=== PATIENT | female | born 1995 | race African-American/Black ===

== ENCOUNTER 2017-10-25 21:27 | Emergency (ER) | payer MEDICAID ==
[2017-10-25 21:48] VITALS: BP 121/79; BMI 47.9
--- NOTE | 2017-10-25 23:34 | DR.GENAD ---
HPI - PCP Primary Care Physician: NLD - Complaint/Symptoms Chief Complaint Doctors Comments: Patient states she was in the emergency room at [facility] and they told her she had the flu and pneumonia and gave her a prescription for amoxicillin and she left the emergency and came to the emergency here. States she has been having right side and back pain with aching all over. states she smokes one pack cigarettes daily and drinks occasionally. She denies any recent trauma. States she has a non productive cough but denies SOB or wheezing. Chief Complaint:: Patient stated that she went to the ER in [place] earlier and was told that she had Flu and Pneumonia. Patient stated she needs a breathing tx. d/t her hx. of Asthma and she feels tight. Patient stated that she can't find her inhaler. Self Treatment fo Chief Complaint: Patient stated that she also has sore are her Clitoris that she would like to be looked at. - Nurses notes reviewed Nurses Notes Review: Yes - Source History Provided: Patient - Mode of Arrival Mode of Arrival: Ambulatory - Timing Onset of Chief Complaint: 10/21/17 Came on: Gradually - Duration Duration: Constant How lon Duration: Days - Location Location: right sided chest pain; aching all over - Severity Severity: Moderate - Modifying Factors Worsens:: nothing Improves:: nothing PMH - PMH Past Medical History: Yes Past Medical History: Asthma, Hypertension Past Medical History Comment: PCOS Past Surgical History: Yes Surgical History: Tonsillectomy Past Surgical History Comment: Dental Surgery - Family History History of Family Medical Conditions: Yes Family Medical History: Diabetes Mellitus, Hypertension Family Medical History Comment: Dementia - Social History Does patient currently use any type of tobacco product: Yes Have you used tobacco products in the last 12 months: Yes Type of Tobacco Use: Cigarettes Alcohol Use: Occasionally Do you use any recreational Drugs:: Yes ([facility]) Lives With: Alone Lives Where: Homeless - infectious screening In the last 2 months have you had wt loss of >10#?: NO Have you had fever, night sweats or hemotysis?: No Have you traveled outside the country in the last 6 months?: No Isolation: Standard ROS - Review of Systems Constitutional: No Symptoms Reported. negative: See HPI, Chills, Diaphoresis, Fever, Malaise, Weakness, Irritable, Fatigue, Loss of Appetite, Other Eyes: No Symptoms Reported ENTM: No Symptoms Reported, Nose Discharge, Nose Congestion, Throat Pain. negative: See HPI, Ear Pain, Ear Discharge, Pulling on Ears, Hearing Loss, Nose Pain, Epistaxis, Mouth Pain, Mouth Swelling, Loose Teeth, Drooling, Throat Swelling, Ear Foreign Body Respiratoy: No Symptoms Reported, Non-Productive Cough. negative: See HPI, Productive Cough, Moist Cough, Dry Cough, Hacking Cough, Barking Cough, Brassy Cough, Orthopnea, Short of Breath, Stridor, Wheezing, Hemoptysis, Other Cardiovascular: No Symptoms Reported. negative: See HPI, Chest Pain, Edema, Palpitations, Syncope, Cyanosis, Skin Mottling, Other Gastrointestinal/Abdominal: No Symptoms Reported. negative: See HPI, Abdominal Pain, Constipation, Diarrhea, Nausea, Vomiting, Food Intolerance, Other Genitourinary: No Symptoms Reported. negative: See HPI, Discharge, Dysuria, Frequency, Hematuria, Pain, Bleeding, Other Neurological: No Symptoms Reported Musculoskeletal: No Symptoms Reported. negative: See HPI, Back Pain, Gout, Joint Pain, Joint Swelling, Muscle Pain, Muscle Stiffness, Neck Pain, Right, Left, Neck, Chest wall, Rib(s), Back, Shoulder, Arm, Elbow, Forearm, Wrist, Hand , Pelvis, Hip, Leg, Knee, Ankle, Foot, Other Integumentary: No Symptoms Reported. negative: See HPI, Change in Color, Change in Hair/Nails, Dryness, Lesions, Lumps, Rash, Itching, Wound, Bruises, Juandice, Other Hematologic/Lymphatic: No Symptoms Reported Endocrine: No Symptoms Reported Psychiatric: No Symptoms Reported. negative: See HPI, Anxiety, Depression, Hallucinations, Excessive crying, Suicidal, Other PE - Vital Signs Vitals: Temperature 99.2 F Pulse Rate 95 Respiratory Rate 24 Blood Pressure 121/79 O2 Sat by Pulse Oximetry 98 - General Limitations: No Limitations, Language Barrier General Appearance: Alert, In Distress (mod), Obese - Head Head Exam: Normal Inspection, Atraumatic, Normocephalic - Eyes Eye exam: Normal Appearance, PERRL, EOMI. negative: Scleral Icterus, Conjunctival Injection, Nystagmus, Miosis, Mydrasis, Periorbital Swelling, Periorbital Tenderness, Other - ENT ENT Exam: Normal Exam, Normal Oropharynx, Normal External Ear Exam, Mucous Membranes Moist (nasal congestion; purulent discharge), TM's Normal Bilaterally External Ear Exam: Normal External Inspection TM/Canal Exam: Bilateral Normal Nose Exam: Normal Nose Exam Mouth Exam: Normal Inspection Throat Exam: Normal Inspection - Neck Neck Exam: Normal Inspection, Full ROM, Trachea Midline - Chest Chest Inspection: Normal Inspection, Symmetric Chest Wall Rise - Respiratory Respiratory Exam: Normal Lung Sounds Bilat Respiratory Exam: Bilateral Clear to Auscultation - Cardiovascular Cardiovascular Exam: Regular Rate, Normal Rhythm, Normal Heart Sounds - Abdominal Exam Abdominal Exam: Normal Inspection, Normal Bowel Sounds, Soft Abdominal Tenderness: negative: RUQ, RLQ, LUQ, LLQ, Epigastrium, Suprapubic, Diffuse, Mild, Moderate, Severe, Other - Extremities Extremities Exam: Normal Inspection, Full ROM, Normal Capillary Refill. negative: Tenderness, Edema, Joint Swelling, Calf Tenderness, Other - Back Back Exam: Normal Inspection, Full ROM. negative: Tenderness, (R) CVA Tenderness, (L) CVA Tenderness, Muscle Spasm, Paraspinal Tenderness, Vertebral Tenderness, Rashes, (R) Sciatic Notch Tenderness, (L) Sciatic Notch Tendern, (R ) Straight Leg Raise, (L) Straight Leg Raise, Other - Neurologic Neurological Exam: Alert, Oriented X3, CN II-XII Intact, Normal Gait, Reflexes Normal - Psychiatric Psychiatric Exam: Normal Affect, Normal Mood - Skin Skin Exam: Warm, Dry, Intact, Normal Color. negative: Rash, Cyanosis, Diaphoresis, Erythema, Pallor, Mottled, Other ROR - Labs Reviewed Laboratory Results Reviewed?: Yes (all labs and x-ray results reviewed and discussed with patient) Laboratory: Influenza Type A (PCR) Negative (NEGATIVE) 10/25/17 23:25 Influenza Type B (PCR) Negative (NEGATIVE) 10/25/17 23:25 S. pyogenes (TEM-PCR) Not detected (NOT DETECT) 10/25/17 23:25 - XRAY XRAY Interpreted by: Radiologist (CXR: No acute cardiopulmonary abnormality) - Diagnosis Discharge Problem: Bronchitis Sinusitis, acute maxillary Qualifiers: Recurrence: non-recurrent Qualified Code(s): J01.00 - Acute maxillary sinusitis , unspecified - Discharge Plan Disposition: HOME, SELF-CARE Condition: Stable Prescriptions: Cephalexin [KEFLEX CAP 500 MG *] 500 mg PO TID #30 cap Cetirizine HCl [Zyrtec Tab 10 mg] 10 mg PO DAILY #30 tab Fluticasone Nasal [place] [FLONASE NASAL SPRAY *] 2 sprays ENOSTRIL DAILY #1 each - Follow ups/Referrals Follow ups/Referrals: Malia CHAN [Primary Care Provider] - 3 days DEV VANESSA [STAFF PHYSICIAN] - 3 days - Instructions Instructions: Sinusitis, Adult, [id number], Acute Bronchitis
--- NOTE | 2017-10-26 00:21 | RAD ---
AP Chest Indication: Chest pain with cough Comparison: None available Findings: The trachea is midline. The cardiac silhouette is unremarkable. The lungs are clear without focal i nfiltrate or effusion. The bony thorax is unremarkable. IMPRESSION: 1. No acute cardiopulmonary abnormality. Reported By:
[2017-10-26] MEDS ORDERED: TORADOL 60 MG VIAL IM ONE (00:27)
[2017-10-26] MEDS ORDERED: PREDNISONE TAB 20 MG PO ONE ×2 (00:27→00:43)
[2017-10-26] MEDS ORDERED: KEFLEX CAP 500 MG PO ONE ×2 (00:27→00:43)
[2017-10-26] MEDS ORDERED: TORADOL 60 MG VIAL ONE (00:43)
== END 2017-10-26 00:52 | disposition home or self-care (01) ==
LOC: ER 21:55
DX: J40 Bronchitis, not specified as acute or chronic (principal); J01.80 Other acute sinusitis; Z72.0 Tobacco use
CPT/HCPCS: 71045; 87502; 87651; 96372; 99282; J1885; J7506